=== PATIENT | male | born 1935 | race Caucasian/White ===

== ENCOUNTER → 2017-01-23 | Outpatient (CLI) | payer MEDICARE ==
[~2017-01-23] MED LIST: ASPI81TA82 PO; AVOD0.5C PO; MAXZ25 PO; PLAV75TA PO; PRAV10 PO
--- NOTE | 2017-01-24 08:25 | RSPPFT ---
DATE OF PROCEDURE: 01/23/17 COMMENTS: VOLUMES DYNAMIC: FVC and FEV1 normal. STATIC: TLC mildly reduced; VTG and RV normal. FLOWS: FEV1% normal; FEF 25-75 normal. DIFFUSION: Normal. FLOW VOLUME LOOP: Flattened inspiratory loop but normal expiratory loop. IMPRESSION: Mild restrictive ventilatory defect with no significant airways obstruction and no improvement post-bronchodilator. Diffusion is normal. There is flattening of the inspiratory loop and clinical correlation is required.
== END ==
LOC: HRSP 09:38
PROVIDERS: ATTEND Internal Medicine
DX: J84.10 Pulmonary fibrosis, unspecified (principal)
CPT/HCPCS: 94060; 94620; 94726; 94729

== ENCOUNTER 2017-05-18 17:10 | Observation (INO) | payer MEDICARE ==
[~2017-05-18] VITALS: Ht 175.3 cm; Wt 106.5 kg
[2017-05-18 17:15] VITALS: BP 182/97; PULSE 69; RESP 22; TEMP 97.6; O2SAT 97
--- NOTE | 2017-05-18 17:18 | PD ---
Physical Exam Date Seen by Provider: May 18, 2017 Time Seen by Provider: 17:16 Narrative 82 yo male here for chest pains. On and off for the past 5 days. More severe today. Worst with exertion. More progressive today. Took full aspirin which helped. Radiates to the arms. History of heart stent. Pain 5/10. No injuries. No other medical issues today. Vitals are stable in triage. Awaiting bed placement. Data Data Last Documented VS Vital Signs Date Time Temp Pulse Resp B/P Pulse Ox O2 Delivery O2 Flow Rate FiO2 05/18/17 17:15 97.6 69 22 182/97 97 Room Air [facility] Medical Record Reviewed: Yes Supervised Visit with EMEKA: No Aneesh Vivas May 18, 2017 17:18
[2017-05-18 17:37] VITALS: BP 169/94; PULSE 54; RESP 16; O2SAT 98
[2017-05-18] MEDS ORDERED: SODIUM CHLORIDE 0.9% FLUSH 10 ML FLUSH IVF PRN (17:45)
--- NOTE | 2017-05-18 17:48 | PD ---
HPI Chief Complaint: Chest Pain Time Seen by Provider: 17:44 Travel History International Travel<30 days: No Contact w/Intl Traveler<30days: No Traveled to known affect area: No History of Present Illness HPI 82-year-old male presents to the emergency department for evaluation of chest pain. He states that started in the left chest 2 days ago, was in the right chest yesterday, is now in the midsternal chest today. He states he did have some tingling and on the right arm which has resolved. Patient denies any chest pain at this time. He states he took a full aspirin today which resolved the pain. He states is worse than exertion, deep breathing, movement. Patient does report history of cardiac stent approximately [address] Whitehead. He had a cardiac catheterization done 2 years ago which was done here. I was able to review this. It was done on September 23, 2014 which did show widely patent stent to the LAD, 75% diffuse disease of the first OM and which could be treated with a stent at the patient continues and significant symptoms. The patient was managed medically. Patient does report history of hypertension, hyperlipidemia, diabetes. PFSH Past Medical History Cardiovascular Problems: Yes Chest Pain: Yes Coronary Artery Disease: Yes Diabetes: Yes Patient Takes Glucophage: No Hypertension: Yes Inguinal Hernia: Yes Influenza Vaccination: No Past Surgical History Cardiac Surgery: Yes (1 STENT) Eye Surgery: Yes (BILATERAL CATARACTS) Genitourinary Surgery: Yes (BLADDER SURGERY (STONES)) Other Surgery: Yes (INGUINAL HERNIA X 2 / TURP) Social History Alcohol Use: Yes (OCCASIONALLY) Tobacco Use: No Substance Use: No Allergies-Medications (Allergen,Severity, Reaction): Coded Allergies: Sulfa (Verified Allergy, Severe, HIVES, 05/18/17) Reported Meds & Prescriptions Reported Meds & Active Scripts Active Reported Finasteride (Finasteride (Alopecia)) 1 Mg Tab Unknown Dose PO DAILY Lisinopril 5 Mg Tab 5 Mg PO DAILY Glipizide 10 Mg Tab 20 Mg PO DAILY Take 30 minutes before a meal Maxzide-25 (Triamterene-Hydrochlorothiazide) 37.5-25 Mg Tab 1 Tab PO DAILY Pravastatin 10 Mg Tab 10 Mg PO HS Aspirin Low Dose (Aspirin) 81 Mg Chew 81 Mg PO DAILY Review of Systems Except as stated in HPI: all other systems reviewed are Neg Physical Exam Narrative GENERAL: Well-nourished, well-developed elderly male patient, afebrile. SKIN: Focused skin assessment warm/dry. HEAD: Normocephalic. Atraumatic. EYES: No scleral icterus. No injection or drainage. NECK: Supple, trachea midline. No JVD or lymphadenopathy. CARDIOVASCULAR: Regular rate and rhythm without murmurs, gallops, or rubs. Bilateral radial and pedal pulses are 2+. RESPIRATORY: Breath sounds equal bilaterally. No accessory muscle use. Lungs sounds with fine crackles noted in the bases. GASTROINTESTINAL: Abdomen soft, non-tender, nondistended. MUSCULOSKELETAL: No cyanosis, or edema. BACK: Nontender without obvious deformity. No CVA tenderness. Data Data Last Documented VS Vital Signs Date Time Temp Pulse Resp B/P Pulse Ox O2 Delivery O2 Flow Rate FiO2 05/18/17 18:43 54 24 166/89 99 Room Air 05/18/17 17:15 97.6 Orders Basic Metabolic Panel (Bmp) (05/18/17 17:33) B-Type Natriuretic Peptide (05/18/17 17:33) Ckmb (Isoenzyme) Profile (05/18/17 17:33) Complete Blood Count With Diff (05/18/17 17:33) Magnesium (Mg) (05/18/17 17:33) Prothrombin Time / Inr (Pt) (05/18/17 17:33) Act Partial Throm Time (Ptt) (05/18/17 17:33) Troponin I (05/18/17 17:33) Chest, Single Ap (05/18/17 17:33) Ecg Monitoring (05/18/17 17:33) Bilateral Bp Monitoring (05/18/17 17:33) Iv Access Insert/Monitor (05/18/17 17:33) Oximetry (05/18/17 17:33) Oxygen Administration (05/18/17 17:33) Sodium Chloride 0.9% Flush (Ns Flush) (05/18/17 17:45) CKMB (05/18/17 17:45) CKMB% (05/18/17 17:45) Labs Laboratory Tests Test 05/18/17 17:45 White Blood Count 11.1 TH/MM3 Red Blood Count 4.96 MIL/MM3 Hemoglobin 15.1 GM/DL Hematocrit 43.9 % Mean Corpuscular Volume 88.5 FL Mean Corpuscular Hemoglobin 30.4 PG Mean Corpuscular Hemoglobin 34.3 % Concent Red Cell Distribution Width 13.6 % Platelet Count 201 TH/MM3 Mean Platelet Volume 8.6 FL Neutrophils (%) (Auto) 62.3 % Lymphocytes (%) (Auto) 26.1 % Monocytes (%) (Auto) 6.7 % Eosinophils (%) (Auto) 4.3 % Basophils (%) (Auto) 0.6 % Neutrophils # (Auto) 6.9 TH/MM3 Lymphocytes # (Auto) 2.9 TH/MM3 Monocytes # (Auto) 0.7 TH/MM3 Eosinophils # (Auto) 0.5 TH/MM3 Basophils # (Auto) 0.1 TH/MM3 CBC Comment DIFF FINAL Differential Comment Prothrombin Time 10.2 SEC Prothromb Time International 0.9 RATIO Ratio Activated Partial 28.9 SEC Thromboplast Time Sodium Level 134 MEQ/L Potassium Level 4.1 MEQ/L Chloride Level 102 MEQ/L Carbon Dioxide Level 27.8 MEQ/L Anion Gap 4 MEQ/L Blood Urea Nitrogen 17 MG/DL Creatinine 1.06 MG/DL Estimat Glomerular Filtration 67 ML/MIN Rate Random Glucose 172 MG/DL Calcium Level 9.0 MG/DL Magnesium Level 2.1 MG/DL Total Creatine Kinase 126 U/L Creatine Kinase MB 4.9 NG/ML Troponin I LESS THAN 0.02 NG/ML B-Type Natriuretic Peptide 5 PG/ML [facility] Medical Decision Making Medical Screen Exam Complete: Yes Emergency Medical Condition: Yes Medical Record Reviewed: Yes Interpretation(s) Last Impressions Chest X-Ray 05/18/17 6423 Signed Impressions: Service Date/Time: Thursday, May 18, 2017 17:56 - CONCLUSION: 1. Minimal basilar atelectasis. No focal dense consolidation or effusion. Jacobo Fernandes MD Differential Diagnosis ACS versus chest wall pain versus pneumonia versus pneumothorax versus electrolyte abnormality Narrative Course 82-year-old male presents to the emergency department with a 2 day history of chest pain. It started on the left chest, to the right chest, now is in the midsternal chest. It is worse with exertion, movement, deep breathing. Patient has no chest pain at this time. EKG shows sinus bradycardia, heart rate 54, no acute ST changes. CBC, BMP, CK, troponin, magnesium, BNP, PTT, PTT/ INR, chest x-ray are ordered and pending. CBC shows leukocytosis of 11.1. BMP shows glucose of 172. CK is 126. Troponin is less than 0.02. Magnesium is 2.1. BNP is 5. Coags are unremarkable. Chest x-ray shows minimal basilar atelectasis. No focal dense consolidation or effusion. Patient remains chest pain-free and symptom-free at this time. I discussed the case with my attending physician, Dr. Landers, who recommends chest pain center admission. The patient agrees to this. Diagnosis Primary Impression: Chest pain Qualified Code: R07.9 - Chest pain, unspecified type Admitting Information Admitting Physician Requests: La Nena Nicole May 18, 2017 17:48
--- NOTE | 2017-05-18 18:06 | RADRPT ---
EXAM DATE/TIME: 05/18/2017 17:56 [facility] COMPARISON: No previous studies available for comparison. INDICATIONS : Bilateral chest pain. MEDICAL HISTORY : Pulmonary fibrosis. SURGICAL HISTORY : None. ENCOUNTER: Initial ACUITY: 1 day PAIN SCORE: Non-responsive. LOCATION: chest FINDINGS: A single view of the chest demonstrates minimal basilar density most right ischium atelectasis. No ef fusion. No pneumothorax. Tortuous aorta. Heart size upper limits normal. CONCLUSION: 1. Minimal basilar atelectasis. No focal dense consolidation or effusion. Jacobo Fernandes MD on May 18, 2017 at 18:04 Board Certified Radiologist. This report was verified electronically.
[2017-05-18 18:16] LABS: AUTOMATED NEUTROPHIL # 6.9 TH/MM3 (1.8-7.7); BASOPHIL # 0.1 TH/MM3 (0-0.2); BASOPHIL % 0.6 % (0.0-2.0); EOSINOPHIL # 0.5 TH/MM3 (0-0.4); EOSINOPHIL % 4.3 % (0.0-4.0); HEMATOCRIT 43.9 % (39.0-51.0); HEMO FLAGS DIFF FINAL; LYMPH % 26.1 % (9.0-44.0); LYMPHOCYTE # 2.9 TH/MM3 (1.0-4.8); MEAN CELL VOLUME 88.5 FL (80.0-100.0); MEAN CORPUSCULAR HEMOGLOBIN 30.4 PG (27.0-34.0); MEAN CORPUSCULAR HGB CONC 34.3 % (32.0-36.0); MONO % 6.7 % (0.0-8.0); NEUT % 62.3 % (16.0-70.0); PLATELET COUNT 201 TH/MM3 (150-450); RED BLOOD COUNT 4.96 MIL/MM3 (4.50-5.90); RED CELL DISTRIBUTION WIDTH 13.6 % (11.6-17.2); WHITE BLOOD COUNT 11.1 TH/MM3 (4.0-11.0)
[2017-05-18] MEDS ORDERED: FINA1TAB16 PO (18:23)
[2017-05-18] MEDS ORDERED: MAXZTAB PO (18:23)
[2017-05-18] MEDS ORDERED: ASPI81CH37 PO (18:23)
[2017-05-18] MEDS ORDERED: LISI-519 PO (18:23)
[2017-05-18] MEDS ORDERED: GLIP10TA6 PO (18:23)
[2017-05-18] MEDS ORDERED: PRAV10TA PO (18:23)
[2017-05-18 18:24] LABS: APTT (PATIENT) 28.9 SEC (24.3-30.1); INTERNATIONAL NORMALIZED RATIO 0.9 RATIO; PROTHROMBIN TIME - PATIENT 10.2 SEC (9.8-11.6)
[2017-05-18 18:38] LABS: ANION GAP 4 MEQ/L (5-15); BICARBONATE 27.8 MEQ/L (21.0-32.0); BLOOD UREA NITROGEN 17 MG/DL (7-18); CHLORIDE 102 MEQ/L (98-107); GLOMERULAR FILTRATION RATE 67 ML/MIN (>89); MAGNESIUM 2.1 MG/DL (1.5-2.5); POTASSIUM 4.1 MEQ/L (3.5-5.1); SODIUM (NA) 134 MEQ/L (136-145)
[2017-05-18 18:39] LABS: CREATINE KINASE 126 U/L (39-308)
[2017-05-18 18:43] VITALS: BP 166/89; PULSE 54; RESP 24; O2SAT 99
[2017-05-18 18:57] LABS: CKMB 4.9 NG/ML (0.5-3.6)
[2017-05-18] MEDS ORDERED: SODIUM CHLORIDE 0.9% FLUSH 10 ML FLUSH IV FLUSH PRN (20:15)
[2017-05-18 22:50] VITALS: BP 156/97; PULSE 55; RESP 16; TEMP 98; O2SAT 96
[2017-05-18 23:00] VITALS: PULSE 78
[2017-05-19] VITALS (13 sets, daily range): BP systolic 123–164; BP diastolic 82–86; PULSE 50–79; RESP 16–18; TEMP 97.7–98.1; O2SAT 96–97
[2017-05-19 05:01] LABS: CREATINE KINASE 105 U/L (39-308)
[2017-05-19] MEDS ORDERED: ACETAMINOPHEN 500 MG CPLT PO PRN (09:45)
[2017-05-19] MEDS ORDERED: ONDANSETRON HCL 4 MG/2 ML VIAL IV PRN (09:45)
[2017-05-19] MEDS ORDERED: NITROGLYCERIN 0.4 MG SL 25 TABS/BTL SL PRN (09:45)
--- NOTE | 2017-05-19 13:33 | HHI.DCPOC ---
Discharge Care Plan Diagnosis: (1) Atypical chest pain (2) Tingling of right upper extremity (3) Hx of coronary artery disease Goals to Promote Your Health * To prevent worsening of your condition and complications * To maintain your health at the optimal level Directions to Meet Your Goals Take your medications as prescribed Follow your dietary instruction Follow activity as directed Keep your appointments as scheduled Take your immunizations and boosters as scheduled If your symptoms worsen call your PCP, if no PCP go to Urgent Care Center or Emergency Room Smoking is Dangerous to Your Health. Avoid second hand smoke Call the 24-hour hour crisis hotline for domestic abuse at Larissa GradyP May 19, 2017 13:33
--- NOTE | 2017-05-19 13:47 | HHI.HP ---
[facility] Primary Care Physician Irvin Snyder MD, PhD Chief Complaint Chest pain History of Present Illness 82-year-old male with history of coronary artery disease, times one cardiac stent and hypertension presents to emergency room for further evaluation of chest pain. Onset Sunday. Location left anterior chest. Made worse by movement. No associated symptoms of nausea, vomiting, diaphoresis, or shortness of breath. Yesterday developed substernal thumping on 3 separate occasions. Then developed right lower arm tingling. Took full strength aspirin and right arm tingling went away approximately 1 hour later. Told his son and of his symptoms and encouraged him to come emergency room for further evaluation. Previous angina pain prior to cardiac stent described as right lower arm burning and associated symptoms of shortness of breath. No known precipitating or relieving factors. Review of Systems General: No fatigue,weakness, fever, chills, or recent illness change in appetite. Has been his general state of health. HEENT: No [place], no vision changes, no nasal congestion or drainage, no dysphasia CV: As stated above. No current chest pressure or pain. RESP: No SOB, cough, or recent upper respiratory infection GI: No nausea or vomiting, bowel changes, diarrhea, constipation, pain, distention, melena, or blood in the stool. No unintentional weight gain or weight loss : No dysuria, urgency, frequency. History of kidney stones, TURP, and BPH EXT: No lower leg edema, occasional bilateral arm tingling stating his PCP told him most likely carpal tunnel. MS: No discomfort or change in ROM NEURO: No change in memory, difficulty with balance, LOC, motor/sensory deficits SKIN: No rashes, no concerning lesions Past Family Social History Allergies: Coded Allergies: Sulfa (Verified Allergy, Severe, HIVES, 05/18/17) Past Medical History Hypertension, coronary artery disease, times one cardiac stent to LAD, borderline diabetes, kidney stones, BPH Past Surgical History TURP, bilateral cataract surgery, right elbow surgery, double hernia repair Reported Medications Reported Meds & Active Scripts Active Reported Finasteride (Finasteride (Alopecia)) 1 Mg Tab Unknown Dose PO DAILY Lisinopril 5 Mg Tab 5 Mg PO DAILY Glipizide 10 Mg Tab 20 Mg PO DAILY Take 30 minutes before a meal Maxzide-25 (Triamterene-Hydrochlorothiazide) 37.5-25 Mg Tab 1 Tab PO DAILY Pravastatin 10 Mg Tab 10 Mg PO HS Aspirin Low Dose (Aspirin) 81 Mg Chew 81 Mg PO DAILY Active Ordered Medications Current Medications Medications (Trade) Dose Ordered Sig/Pete Route Start Time Stop Time Status Last Admin (NS Flush) 2 ml UNSCH PRN IVF 05/18/17 17:45 (NS Flush) 2 ml UNSCH PRN IV FLUSH 05/18/17 20:15 (Tylenol) 500 mg Q4H PRN PO 05/19/17 09:45 (Zofran Inj) 4 mg Q6H PRN IV 05/19/17 09:45 (Nitrostat Sl) 0.4 mg Q5M PRN SL 05/19/17 09:45 Social History Known coronary artery disease, hypertension, and taking appropriate statin therapy. Borderline diabetic. Lifelong nonsmoker. Denies any alcohol or illegal drug use. Active, continues to mow his yard weekly and is currently taking care of his recently broke her leg. Past cardiac testing No recent stress testing. Patient's admissions representative is Dr. Whitehead. 09/23/2014 cardiac catheterization(Dr. Whitehead)-conclusions 1. Normal LV function. 2. Widely patent stent to LAD. 3. Some disease to very small obtuse marginal branch. 4. 75% diffuse disease of the first OM which could be treated with a stent at the patient continues to have significant symptoms. Recommendations for now, we will try managed medically as far as possible given his advanced age and complex peripheral anatomy was subtotal occlusion of right morals/iliac vessel (site of prior balloon angioplasty of right groin vessels at [facility]). Cardiac stent to LAD placed [facility] approximately 5 years ago. Physical Exam Vital Signs Vital Signs Date Time Temp Pulse Resp B/P Pulse Ox O2 Delivery O2 Flow Rate FiO2 05/19/17 12:53 97.9 65 18 164/85 96 05/19/17 11:54 69 05/19/17 10:51 79 05/19/17 08:35 72 05/19/17 07:41 71 05/19/17 07:41 97.7 71 18 123/82 97 05/19/17 06:00 66 05/19/17 05:00 50 05/19/17 04:23 98.1 59 16 128/86 96 05/19/17 04:00 52 05/19/17 03:00 57 05/19/17 02:00 52 05/19/17 01:00 54 05/19/17 00:00 62 05/18/17 23:00 78 05/18/17 22:50 98.0 55 16 156/97 96 05/18/17 18:43 54 24 166/89 99 Room Air 05/18/17 17:37 54 16 169/94 98 Room Air 05/18/17 17:15 97.6 69 22 182/97 97 Room Air Physical Exam GENERAL: Alert WN, WD, NAD, pleasant, elderly male HEAD: NC, AT NECK: Supple, no masses, trachea midline CV: RRR, without murmur, rub, gallop, no JVD, S1-S2 no S3-S4. No carotid bruits. RESP: Clear lungs throughout bilateral, no crackles, wheeze, rhonchi, symmetrical chest rise, nonlabored, able to speak in full sentences ABD: Soft, NT, ND, no masses, positive bowel tones EXT: Pulses +24, no dependent edema MS: Normal tone 4 extremities, nontender, no obvious deformities, full range of motion NEURO: CN II through CN XII grossly intact, motor strength 5/5, gait WNL PSYCH: A+O 3, pleasant affect, appropriate speech, appropriate mood and affect , insight and judgment SKIN: Normal turgor, normal texture, no lesions, no rashes, brisk cap refill Laboratory Laboratory Tests Test 05/18/17 05/18/17 05/19/17 17:45 20:55 04:00 White Blood Count 11.1 Red Blood Count 4.96 Hemoglobin 15.1 Hematocrit 43.9 Mean Corpuscular Volume 88.5 Mean Corpuscular Hemoglobin 30.4 Mean Corpuscular Hemoglobin 34.3 Concent Red Cell Distribution Width 13.6 Platelet Count 201 Mean Platelet Volume 8.6 Neutrophils (%) (Auto) 62.3 Lymphocytes (%) (Auto) 26.1 Monocytes (%) (Auto) 6.7 Eosinophils (%) (Auto) 4.3 Basophils (%) (Auto) 0.6 Neutrophils # (Auto) 6.9 Lymphocytes # (Auto) 2.9 Monocytes # (Auto) 0.7 Eosinophils # (Auto) 0.5 Basophils # (Auto) 0.1 CBC Comment DIFF FINAL Differential Comment Prothrombin Time 10.2 Prothromb Time International 0.9 Ratio Activated Partial 28.9 Thromboplast Time Sodium Level 134 Potassium Level 4.1 Chloride Level 102 Carbon Dioxide Level 27.8 Anion Gap 4 Blood Urea Nitrogen 17 Creatinine 1.06 Estimat Glomerular Filtration 67 Rate Random Glucose 172 Calcium Level 9.0 Magnesium Level 2.1 Total Creatine Kinase 126 78 105 Creatine Kinase MB 4.9 4.0 Troponin I LESS THAN 0.02 0.02 LESS THAN 0.02 B-Type Natriuretic Peptide 5 Result Diagram: 05/18/17 1745 05/18/17 174 Imaging Last Impressions Chest X-Ray 05/18/17 1733 Signed Impressions: Service Date/Time: Thursday, May 18, 2017 17:56 - CONCLUSION: 1. Minimal basilar atelectasis. No focal dense consolidation or effusion. Jacobo Fernandes MD Course EKG Normal sinus rhythm, no ST or T-segment changes Assessment and Plan Assessment and Plan Atypical Chest painadmitted to chest pain center. Ruled out with 3 sets of EKGs, cardiac enzymes, monitor overnight. Seen and evaluated by Dr. Ethan Samson. No further cardiac testing required at this time his chest discomfort atypical. Keep scheduled appointment with Dr. Whitehead in 2 weeks, instructed him to call office on Sunday to notify Dr. Whitehead of this admission. Also notify PCP and follow-up accordingly. No changes to medications at this time. He has been instructed to return the emergency room for any further chest discomfort or concerns. Larissa Grady May 19, 2017 13:47
--- NOTE | 2017-05-19 17:06 | EKG ---
Date Performed: 05/19/2017 Time Performed: 04:13:22 PTAGE: 82 years EKG: Sinus bradycardia rSr'(V1) - probable normal variant PREVIOUS TRACING : 05/18/2017 20.48 Since previous tracing, no significant change noted DOCTOR: Ethan Samson Interpretating Date/Time 05/19/2017 17:05:57
--- NOTE | 2017-05-19 17:15 | EKG ---
Date Performed: 05/18/2017 Time Performed: 20:48:31 PTAGE: 82 years EKG: SINUS BRADYCARDIA POSSIBLE RIGHT VENTRICULAR CONDUCTION DELAY NONSPECIFIC T-WAVE ABNORMALIT Y BORDERLINE ECG PREVIOUS TRACING : 05/18/2017 17.26 Since previous tracing, no significant change noted DOCTOR: Ethan Samson Interpretating Date/Time 05/19/2017 17:13:39
--- NOTE | 2017-05-19 17:16 | EKG ---
Date Performed: 05/18/2017 Time Performed: 17:26:39 PTAGE: 82 years EKG: SINUS BRADYCARDIA POSSIBLE RIGHT VENTRICULAR CONDUCTION DELAY BORDERLINE ECG NO PREVIOUS TRACING DOCTOR: Ethan Samson Interpretating Date/Time 05/19/2017 17:14:44
== END 2017-05-19 16:05 | disposition home or self-care (01) ==
LOC: NEPD 17:10 → NEDA 20:01 → HCIN 22:27 → NEPFCDU 05-19 11:02
PROVIDERS: ADMIT Internal Medicine Interventional Cardiology; ATTEND Internal Medicine Interventional Cardiology
DX: R07.89 Other chest pain (principal); R20.2 Paresthesia of skin; R00.1 Bradycardia, unspecified; E78.5 Hyperlipidemia, unspecified; R73.03 Prediabetes; I25.10 Atherosclerotic heart disease of native coronary artery without angina pectoris; Z98.61 Coronary angioplasty status; Z79.82 Long term (current) use of aspirin; Z79.899 Other long term (current) drug therapy
CPT/HCPCS: 71010; 80048; 82550; 82552; 83735; 83880; 84484; 85025; 85610; 85730; 93005; 99285; G0378